=== PATIENT | male | born 1955 | race Hispanic/Latino ===

== ENCOUNTER 2022-09-03 19:50 | Inpatient (IN) | payer BC, MEDICARE ==
[~2022-09-03 19:50] MED LIST: Iopamidol 370 76% 100 ML VIAL ONE
[2022-09-03] MEDS ORDERED: Aspirin Chewable 81 MG TAB ONE (20:48)
[2022-09-03 20:56] LABS: #Basophils 0.1 10x3/uL (0.0-0.2); #Eosinphils 0.1 10x3/uL (0.0-0.5); #Monocytes 0.5 10x3/uL (0.0-1.1); %Basophils 1.5 % (0.0-2.0); %Eosinophils 0.8 % (0.0-6.0); %Lymphocytes 23.7 % (18.0-47.0); %Monocytes 8.7 % (0.0-10.0); %Neutrophils 64.8 % (40.0-75.0); Hemoglobin 15.4 g/dL (13.5-17.5); Mean Corpuscular HGB CONC 35.5 g/dL (32.0-36.0); Mean Corpuscular Hemoglobin 32.6 pg (27.0-33.0); Mean Corpuscular Volume 91.9 fl (81.2-95.1); Mean Platelet Volume 9.8 fl (7.4-10.4); Platelet Count 253 10x3/uL (150-450); Red Blood Cell (RBC) Count 4.72 10x6/uL (4.32-5.72); White Blood Cell (WBC) Count 6.1 10x3/uL (3.5-10.5)
[2022-09-03 21:18] LABS: ALT (SGPT) 23 U/L (8-55); AST (SGOT) 28 U/L (5-34); Alkaline Phosphatase 91 U/L (40-110); Anion Gap 16 mmol/L (10-20); BUN (Urea Nitrogen) 16 mg/dL (8.4-25.7); Bilirubin, Total 0.5 mg/dL (0.2-1.2); Calc. Creatinine Clearance 0 mL/min (70-130); Calcium 9.3 mg/dL (7.8-10.44); Carbon Dioxide 23 mmol/L (23-31); Chloride 105 mmol/L (98-107); Estimated GFR 99; Globulin 2.9 g/dL (2.4-3.5); Glucose 105 mg/dL (80-115); Magnesium 1.9 mg/dL (1.6-2.6); Protein, Total 6.9 g/dL (5.8-8.1); Sodium 140 mmol/L (136-145)
[2022-09-03] MEDS ORDERED: Ondansetron PF 4 MG/2 ML Vial IVP PRN (22:41)
[2022-09-03] MEDS ORDERED: Guaifenesin DM 100-10/5 ML UDCUP PO PRN (22:41)
[2022-09-03] MEDS ORDERED: Calcium Carbonate 500 MG ChewTAB PO PRN (22:41)
[2022-09-03] MEDS ORDERED: Acetaminophen 325 MG TAB PO PRN (22:41)
[2022-09-03] MEDS ORDERED: Zolpidem Tartrate 5 MG TAB PO PRN (22:41)
[2022-09-03] MEDS ORDERED: Senokot S 8.6-50 MG TAB PO PRN (22:41)
[2022-09-04 00:08] VITALS: BMI 32.1
[2022-09-04] MEDS ORDERED: Melatonin 3 MG TAB PO PRN (00:29)
[2022-09-04 04:29] LABS: Cardiac Risk 4.5 (Less than 4.5)
[2022-09-04] MEDS ORDERED: Aspirin 81 mg Enteric Coated Tablet PO SCH (09:00)
[2022-09-04] MEDS ORDERED: FLU VACC QS2022-23(65YR UP)/PF 240 MCG/0.7 ML SYRINGE IM ONE (09:00)
[2022-09-04] MEDS ORDERED: Enoxaparin Sodium 40 MG/0.4 ML SYRINGE SC SCH (09:00)
[2022-09-04 13:21] LABS: Hemoglobin A1c 5.4 % (4.0-6.0)
[2022-09-04 17:08] VITALS: BP 137/79; TEMP 98
[2022-09-04] MEDS ORDERED: Rosuvastatin 20 MG TAB PO SCH (21:00)
== END 2022-09-04 20:34 | disposition home or self-care (01) | DRG 69 ==
LOC: CSHERS 19:50 → CSHTELE 23:38 → OBSVTOIN 09-04 15:58
PROVIDERS: ADMIT Student in an Organized Health Care Education/Training Program; ATTEND Nurse Practitioner Family
DX: G45.9 Transient cerebral ischemic attack, unspecified (principal); M21.371 Foot drop, right foot; I66.12 Occlusion and stenosis of left anterior cerebral artery; I10 Essential (primary) hypertension; E78.5 Hyperlipidemia, unspecified; R73.03 Prediabetes; I71.21 Aneurysm of the ascending aorta, without rupture; F10.10 Alcohol abuse, uncomplicated; Z20.822 Contact with and (suspected) exposure to COVID-19
CPT/HCPCS: 36415; 70450; 70496; 70551; 80053; 80061; 83036; 83735; 84443; 84484; 85025; 93005; 93306; 93880; 96372; G0378; J1650; Q9967; U0003; U0005